=== PATIENT | male | born 1995 | race Hispanic/Latino ===

== ENCOUNTER 2020-05-20 10:32 | Emergency (ER) | payer MEDICAID, OTHER ==
[2020-05-20] MEDS ORDERED: KETOROLAC TROMETHAMINE 60 MG/2 ML VIAL ONE (11:39)
[2020-05-20] MEDS ORDERED: LIDOCAINE 5% TOPICAL PATCH TP ONE (11:40)
== END 2020-05-20 13:37 | disposition home or self-care (01) ==
LOC: EDH 10:32
DX: S20.212A Contusion of left front wall of thorax, initial encounter (principal); W50.1XXA Accidental kick by another person, initial encounter; Y93.89 Activity, other specified; Y92.89 Other specified places as the place of occurrence of the external cause; Y99.8 Other external cause status
CPT/HCPCS: 71101; 96372; 99283; J1885